=== PATIENT | male | born 1995 | race Caucasian/White ===

== ENCOUNTER 2021-07-08 18:02 | Emergency (ER) | payer OTHER ==
[~2021-07-08] VITALS: Ht 157.5 cm; Wt 65.9 kg
[~2021-07-08 18:02] MED LIST: GUAN1TAB PO; RISP1TAB98 PO
[2021-07-08 18:18] VITALS: BP 130/75
[2021-07-08] MEDS ORDERED: quetiapine 100mg tablet PO STA (18:24)
[2021-07-08] MEDS ORDERED: olanzapine 10mg tablet PO STA (18:24)
== END 2021-07-08 18:46 | disposition home or self-care (01) ==
LOC: ER 18:03
DX: F31.9 Bipolar disorder, unspecified (principal); F15.10 Other stimulant abuse, uncomplicated; J45.909 Unspecified asthma, uncomplicated; F41.9 Anxiety disorder, unspecified; F20.9 Schizophrenia, unspecified; F29 Unspecified psychosis not due to a substance or known physiological condition; F12.90 Cannabis use, unspecified, uncomplicated; Z79.899 Other long term (current) drug therapy
CPT/HCPCS: 99283

== ENCOUNTER 2022-02-12 16:05 | Emergency (ER) | payer MEDICAID, OTHER ==
[~2022-02-12] VITALS: Ht 175.3 cm; Wt 63.6 kg
[2022-02-12 17:01] LABS: BASOPHILS # (AUTO) 0.1 X10'3 (0-0.2); BASOPHILS % (AUTO) 0.6 % (0-1); EOSINOPHILS # (AUTO) 0.4 X10'3 (0-0.9); EOSINOPHILS % (AUTO) 3.8 % (0-6); HEMOGLOBIN 15.8 g/dl (14.0-17.9); LYMPHOCYTES # (AUTO) 1.7 X10'3 (1.1-4.8); LYMPHOCYTES % (AUTO) 15.7 % (21-51); MEAN CORPUSCULAR HEMOGLOBIN 29.8 PG (27.0-31.0); MEAN CORPUSCULAR HGB CONC 34.3 g/dL (33.0-36.5); MEAN PLATELET VOLUME 7.9 FL (7.4-10.4); MONOCYTES # (AUTO) 0.8 X10'3 (0-0.9); MONOCYTES % (AUTO) 7.2 % (2-12); NEUTROPHILS # (AUTO) 7.9 X10'3 (1.8-7.7); NEUTROPHILS % (AUTO) 72.7 % (42-75); PLATELET COUNT 291 X10'3 (140-440); RED BLOOD COUNT 5.29 X10'6 (4.70-6.10); RED CELL DISTRIBUTION WIDTH 13.8 % (11.5-14.5); WHITE BLOOD COUNT 10.9 X10'3 (4.5-11.0)
[2022-02-12 17:12] LABS: CLARITY,URINE CLOUDY (Clear); COLOR,URINE YELLOW (Yellow); GLUCOSE, URINE NEGATIVE (Neg); KETONES,URINE NEGATIVE (Neg); LEUKOCYTE ESTERASE ,URINE SMALL (Neg); NITRITES, URINE NEGATIVE (Neg); OCCULT BLOOD,URINE TRACE-INTACT (Neg); PROTEIN,URINE 30 mg/dl (Neg); UROBILINOGEN,URINE 0.2 E.U/dL (0.2-1.0)
[2022-02-12 17:15] LABS: UA COLLECTION TYPE VOIDED
[2022-02-12 17:15] LABS: ALANINE AMINOTRANSFERASE 47 U/L (12-78); ALBUMIN 3.6 G/DL (3.4-5.0); ALKALINE PHOSPHATASE 72 IU/L (46-116); ANION GAP 7 (8-16); ASPARTATE AMINO TRANSFERASE 33 U/L (10-37); BILIRUBIN,TOTAL 0.3 MG/DL (0.1-1.0); BLOOD UREA NITROGEN 22 MG/DL (7-18); BUN/CREATININE RATIO 19.6 (5.4-32.0); CALCIUM 8.8 MG/DL (8.5-10.1); CHLORIDE 106 MMOL/L (99-107); CREATININE 1.12 MG/DL (0.60-1.10); GLUCOSE 85 MG/DL (70-104); SODIUM 141 MMOL/L (135-145); TOTAL CARBON DIOXIDE 27.7 MMOL/L (24-32); TOTAL PROTEIN 7.2 G/DL (6.4-8.2); eGFR 80 ML/MIN
[2022-02-12 17:19] LABS: URINE AMPHETAMINE SCREEN POSITIVE (Neg); URINE BARBITUATE SCREEN NEGATIVE (Neg); URINE BENZODIAZEPINES SCREEN NEGATIVE (Neg); URINE CANNABINOID SCREEN POSITIVE (Neg); URINE COCAINE SCREEN NEGATIVE (Neg); URINE METHADONE SCREEN NEGATIVE (Neg); URINE OPIATE SCREEN NEGATIVE (Neg); URINE PHENCYCLIDINE SCREEN NEGATIVE (Neg)
[2022-02-12 17:26] LABS: ETHANOL < 0.010 GM/DL (0.0-0.010)
[2022-02-12 17:35] LABS: WBC,URINE TNTC /HPF (0-4)
[2022-02-12 17:37] LABS: BACTERIA,URINE 1+ /HPF (Neg); SPERM MANY /HPF (NEGATIVE); SQUAMOUS EPITHELIAL CELL,UR FEW /LPF (FEW)
--- NOTE | 2022-02-12 18:41 | NUR ---
Packet sent to [facility]
--- NOTE | 2022-02-13 07:05 | NUR ---
PT IS SLEEPING IN RGT LATERAL POSITION.
--- NOTE | 2022-02-13 09:00 | NUR ---
pt sleeping at this time ,RR WNL.
--- NOTE | 2022-02-13 10:42 | NUR ---
pt sleeping in lft lateral position ,RR WNL.
--- NOTE | 2022-02-13 11:08 | NUR ---
RECEIVED CALL FROM IN[employer]A [employer] FROM [facility] REGARDING PATIENT INFORMATION FOR THE PLACEMENT ,REQUESTING FOR TOX SCREEN,MED CLEAR ,COVID RESULT FAXED TO [phone].
--- NOTE | 2022-02-13 11:20 | NUR ---
FAXED THE LAB RESULT AND MD RAMOS CLEAREANCE REPORT TO [facility].
--- NOTE | 2022-02-13 11:49 | NUR ---
PT IS RESTING IN BED WITH EYES CLOSED IN RGT LATERAL POSITION WITH KNEE FLEXED TO CHEST ,NO DISTRESS NOTED ,WILL CONT TO MONITOR.
[2022-02-13 13:02] VITALS: BP 128/80
--- NOTE | 2022-02-13 13:04 | NUR ---
PT ACCEPTED BY DR. CHACHO GOODMAN AT 1228. WILL GO TO [facility], RIDE WILL BE HERE APPROX 1600. PER [facility] FROM [facility].
== END 2022-02-13 15:30 ==
LOC: ER 16:06
DX: F31.9 Bipolar disorder, unspecified (principal); F20.9 Schizophrenia, unspecified; J45.909 Unspecified asthma, uncomplicated; Z20.822 Contact with and (suspected) exposure to COVID-19; F41.9 Anxiety disorder, unspecified; F12.90 Cannabis use, unspecified, uncomplicated; F15.90 Other stimulant use, unspecified, uncomplicated; F11.90 Opioid use, unspecified, uncomplicated; Z79.899 Other long term (current) drug therapy
CPT/HCPCS: 36415; 80053; 80305; 80320; 81001; 84443; 85025; 99285